=== PATIENT | female | born 1970 | race Caucasian/White ===

== ENCOUNTER 2023-09-25 10:58 | Outpatient (CLI) | payer BC, SELFPAY | END 2023-09-25 23:59 | disposition home or self-care (01) | LOC: 64 CT 10:58 | PROVIDERS: ATTEND Nurse Practitioner Family | DX: Z13.6 Encounter for screening for cardiovascular disorders (principal); I25.10 Atherosclerotic heart disease of native coronary artery without angina pectoris; Z82.49 Family history of ischemic heart disease and other diseases of the circulatory system | CPT/HCPCS: 75571 ==